=== PATIENT | male | born 1965 | race Caucasian/White ===

== ENCOUNTER 2023-08-17 10:08 | Day surgery (SDC) | payer OTHER ==
[2023-08-12 15:12] VITALS: BMI 23.0
[2023-08-17] MEDS: LACTATED RINGERS 1,000 ML IV SCH (10:23)
[2023-08-17 10:55] VITALS: TEMP 98.1
[2023-08-17] MEDS ORDERED: LIDOCAINE 2% (PF) 20 MG/ML 5 ML VIAL ONE (12:55)
[2023-08-17] MEDS ORDERED: PROPOFOL 10 MG/ML 20 ML VIAL IV ONE (12:55)
[2023-08-17] MEDS ORDERED: GLUCAGON 1 MG/ML VIAL ONE (12:55)
--- NOTE | 2023-08-17 13:26 | P.OP ---
Date of Procedure: 08/17/23 Preoperative Diagnosis: perineal abscess Postoperative Diagnosis: peritoneal abscess Colon polyps Procedure(s) Performed: colonoscopy Anesthesia: MAC Surgeon: Anthony Boland Pathology: other (rectal polyp, left colon polyp) Condition: stable Disposition: PACU Description of Procedure: patient's placed on the endoscopy table in the lateral position. He received IV sedation. Digital rectal exam performed. This revealed some hemorrhoids. Patient had significant scarring on his left gluteal area related to previous perineal abscess. The colonoscope was then placed patient anus passed rotator colon. The ileocecal valve was visualized. The cecum, ascending and transverse colon appeared normal. The descending colon appeared normal. In the lower left colon there was a polyp seen. His removed with the snare. The sigmoid colon appeared normal. Scope was brought back the rectum another polyp seen was a cold forcep. Scope was withdrawn for patient.
[2023-08-17 13:43] VITALS: RESP 16
[2023-08-17 13:44] VITALS: BP 135/83; PULSE 67
== END 2023-08-17 14:04 | disposition home or self-care (01) ==
LOC: ORWHC2ENDO 10:08
PROVIDERS: ATTEND Surgery
DX: K63.5 Polyp of colon (principal); K65.1 Peritoneal abscess; F17.210 Nicotine dependence, cigarettes, uncomplicated; Z79.899 Other long term (current) drug therapy
CPT/HCPCS: 88305; 45380; 45385; J1610; J2704; J2001